=== PATIENT | female | born 1950 | race Caucasian/White ===

== ENCOUNTER 2024-03-13 17:20 | Emergency (ER) | payer MEDICARE, OTHER, SELFPAY ==
[2024-03-13 17:23] VITALS: BP 150/98
[2024-03-13 18:07] LABS: % Basophils 0.4 % (0-2); % Lymphocytes 42.9 % (20.5-51.1); % Monocytes 8.2 % (1.7-9.3); % Neutrophils 48.5 % (42.2-75.2); Absolute Monocytes 0.2 10^3/uL (0.1-0.6); Absolute Neutrophils 1.1 10^3/uL (1.4-6.5); Hematocrit 39.2 % (37.0-47.0); Hemoglobin 13.3 g/dL (12.0-16.0); Mean Corp Hgb Conc. 33.9 g/dL (33.0-37.0); Mean Corpuscular Volume 88.5 fL (81.0-99.0); Mean Platelet Volume 10.1 fL (7.4-10.4); Nucleated Red Blood Cells % 0 %; Platelet Count 168 10^3/uL (130-400); Red Blood Cell Count 4.43 10^6/uL (4.20-5.40); Red Cell Dist. Width 12.3 % (11.5-14.5); White Blood Cell Count 2.3 10^3/uL (4.8-10.8)
[2024-03-13 18:15] LABS: ALT (SGPT) 27 U/L (0-35); AST (SGOT) 34 U/L (14-36); Albumin 4.4 g/dl (3.5-5.0); Alkaline Phosphatase 76 U/L (38-126); Blood Urea Nitrogen 13 mg/dl (7-17); Calcium 9.3 mg/dl (8.4-10.2); Carbon Dioxide 26 mmol/L (22-30); Chloride 94 mmol/L (98-107); Glucose 114 mg/dl (70-99); Potassium 4.3 mmol/L (3.5-5.1); Sodium 128 mmol/L (135-145); Total Bilirubin 0.1 mg/dl (0.2-1.3); Total Protein 6.7 g/dl (6.3-8.2); eGFR > 60.00
[2024-03-13 18:18] LABS: Troponin I < 0.012 ng/ml
[2024-03-13 18:53] VITALS: BP 158/75
[2024-03-13 18:55] VITALS: BMI 22.3
[2024-03-13 18:58] VITALS: BP 158/75
[2024-03-13 19:00] VITALS: BP 155/43
--- NOTE | 2024-03-13 19:33 | ED.GENMED ---
History of Present Illness
General
Chief Complaint: Chest Pain
Source: patient
Exam Limitations: none
Time Seen by Provider: 03/13/24 19:04
Nursing documentation reviewed up to this point in time: agreed with
History of Present Illness
History of Present Illness:
73-year-old female with past medical history of A-fib on Eliquis who presents to the ER for evaluation of palpitations. Patient reports that she has been sick for about 5 or 6 days with cough and congestion. She says that a few days ago she
started to notice that she was having some occasional palpitations. Last night palpitations were worse and she said her heart rate was elevated but she was able to get to sleep. This morning palpitations and tachycardia increased. She did check
on her Apple Watch and noted that she was in sinus rhythm but appeared to be having extra beats; she decided to come to the ER for assessment. I did review the strips from her Apple Watch and indeed it appears to show sinus tachycardia with
occasional PACs. Denies palpitations at present. She says she has not had any chest pain, shortness of breath. Denies any nausea, vomiting, abdominal pain; has had some loose stools. She reports that her mouth feels dry denies any other
complaints on review of systems. She does note that she was started on Augmentin 2 days ago but skipped last night's dose with concern that palpitations could be a side effect.
Review of Systems
Review of Systems
All Other Systems: ROS reviewed and negative except as documented in HPI and ROS
Constitutional: Reports fatigue; Denies fever
EENT: Reports other (Congestion); Denies sore throat
Respiratory: Reports cough; Denies trouble breathing
Cardiac: Reports palpitations; Denies chest pain or syncope
ABD/GI: Reports diarrhea; Denies abdominal pain, nausea or vomiting
Neurological: Denies dizzy or headache
Phy Exam
Physical Exam
Physical Exam:
General: Awake, alert, oriented x3; no acute distress
Head: Normocephalic, atraumatic
Eyes: Conjunctiva normal, EOMI
Throat: Airway intact, handling secretions, somewhat dry mucous membranes
Neck: Trachea midline, supple without meningismus
Lungs: Clear to auscultation bilaterally, no wheezing, rales, rhonchi; occasional cough
Heart: Regular rate and rhythm, no murmurs, gallops, or rubs with no ectopy
Abd: Soft, non distended, nontender
Neuro: No gross deficits
Extremities: No edema in extremities, warm and well-perfused
Scores
Heart Failure Risk
Heart Failure Risk Score: Not Applicable
Heart Score for Chest Pain Patients
STEMI patient?: Not applicable
Withdrawal Assessment of Alcohol
Withdrawal Assessment Completed?: Not applicable
Course
Orders/Labs/Results
Orders:
Orders
03/13/24 17:21
Electrocardiogram (*1) Urgent
Reason for Study: Chest Pain
EKG- Treatment ONCE
03/13/24 17:23
CXR2 [CR Chest - 2 Views ] Urgent
Comment:
Reason For Exam: palpitations
03/13/24 17:47
Complete Blood Count/With Diff Urgent
Comprehensive Metabolic Panel Urgent
Magnesium Urgent
Comment: ADD ON
Troponin I Urgent
03/13/24 19:32
Add On- LAB Urgent
Tests Added?: magnesium level
0.9% Sodium Chloride 1000 ml [Nss] 1,000 ml IV BOLUS
Ipratropium/Albuterol Sulfate [Duoneb] 3 ml INH R NOW ONE
03/13/24 20:08
COVID-19 Antigen Urgent
Source: Nasal Swab
Influenza A+B Rapid Molecular Urgent
LORI Source: Nasal Swab
Specimen Description:
Abnormal Lab Results
03/13/24
17:47
WBC 2.3 L* 10^3/uL
(4.8-10.8)
Absolute Neuts (auto) 1.1 L 10^3/uL
(1.4-6.5)
Absolute Lymphs (auto) 1.0 L 10^3/uL
(1.2-3.4)
Sodium 128 L mmol/L
(135-145)
Chloride 94 L mmol/L
(98-107)
Creatinine 0.5 L mg/dL
(0.6-1.0)
Glucose 114 H mg/dl
(70-99)
Total Bilirubin 0.1 L mg/dl
(0.2-1.3)
03/13/24 17:47
03/13/24 17:47
Vital Signs
Initial and Last Documented VS:
Initial Vital Signs
Temp Pulse Resp BP Pulse Ox
37.0 C 83 16 150/98 99
03/13/24 17:23 03/13/24 17:23 03/13/24 17:23 03/13/24 17:23 03/13/24 17:23
Last Documented Vital Signs
Temp Pulse Resp BP Pulse Ox
36.9 C 64 13 157/70 99
03/13/24 18:58 03/13/24 20:00 03/13/24 20:00 03/13/24 20:00 03/13/24 20:00
MDM/Problems Addressed
Differential Diagnosis Includes:
Palpitations: PACs, paroxysmal atrial fibrillation, PVCs, anxiety
Cough/congestion: URI�flu/COVID, pneumonia considered less likely
MDM/Problems Addressed:
73-year-old female presents for evaluation of palpitations in the setting of recent URI symptoms. Hypertensive otherwise normal vitals. Physical exam as above. I did review strips from her Apple Watch that shows sinus tachycardia with PACs during
the time with which patient is reporting symptoms. EKG here shows sinus rhythm no ectopy. She had labs sent in triage including a CBC which shows leukopenia possibly in the setting of viral illness; CMP shows mild hyponatremia with acceptable
glucose no other clinically significant abnormalities. Denies chest pain but she did have a troponin sent in triage which was undetectable. She has a chest x-ray which shows no pneumonia, question of emphysema on chest x-ray--no reported history.
Will add swabs for COVID and flu. Plan to provide some fluids as patient appears to be mildly dehydrated which likely contributes to tachycardia. Will treat with a DuoNeb. Will monitor and reassess after the above. Likely stable for discharge
with supportive care and PCP follow-up for repeat labs.
Patient positive for influenza here. COVID-negative. Feeling better after fluids and DuoNeb. Outside window for Tamiflu, with question of emphysema on x-ray not unreasonable to trial Medrol Dosepak. Follow-up with PCP as an outpatient. Patient
feels comfortable with this plan. All questions answered.
*Radiology
Radiology exam reviewed: preliminary read by ED provider
*Pulse Oximetry
Patient hypoxic: no
*EKG
Interpreted by ED Provider?: Yes
Heart Rate: 75
Rate: normal
Rhythm: sinus
Corn: normal axis
Interval: normal interval
QRS Pattern: low voltage and right bundle branch block
Ischemia: no ischemia
*Critical Care Note
Total Time (30-74mins, 75-104mins- exclusive of procedures): Not Applicable
Data Reviewed
Source: patient and family (Son)
ED Attending Note
-
Portions of this chart may have been created with voice recognition software.� Occasional wrong word or��sound alike� substitutions may have occurred due to the inherent limitations of voice recognition software.
Discharge Plan
Departure
Patient Disposition: Home (Routine Discharge)
Date of Disposition: 03/13/24
Time of Disposition: 20:50
Patient with high blood pressure during this ER visit?: Yes
Discharge Problem:
Influenza A, Leukopenia, Dehydration, Heart palpitations
Instructions: Flu, Child ED, Palpitations ED, Dehydration in adults - ED discharge instructions
Prescriptions:
New
methylprednisolone [Medrol (Lionel)] 4 mg tablets,dose pack
See Rx Instructions .ROUTE .COMPLEX Qty: 21 0RF
Rx Instructions:
for 6 days
No Action
Eliquis 5 mg Tablet
5 mg PO BID
acetaminophen [Tylenol Extra Strength] 500 mg Tablet
1,000 mg PO Q6HPRN PRN (Reason: mild pain)
metoprolol succinate 25 mg Tablet Extended Release 24 Hr
12.5 mg PO DAILY
cholecalciferol (vitamin D3) [Vitamin D3] 50 mcg (2,000 unit) Tablet
50 mcg PO DAILY
estradiol [Vagifem] 10 mcg Tablet
10 mcg VAGINAL MOFR
magnesium oxide 400 mg magnesium Tablet
400 mg PO DAILY
Referrals:
Natasha Ashton MD [Family Provider] - Call in 1-3 days for appt
Activity Restrictions/Additional Instructions:
You should drink plenty of fluids and get plenty of rest over the next few days while you are recovering from the flu. You should follow-up with your primary doctor next week to have repeat blood work.
Thank you for visiting the Emergency Department at [facility].
1. Please schedule a follow up appointment as directed. Call first thing tomorrow morning to make an appointment.
2. If indicated, please take your medications as instructed and indicated on discharge paperwork.
3. If any of your symptoms do not improve, or persist, or become more severe within 6-12 hours, please return to the emergency department for further care.
4. Please return to the emergency department if you develop a headache, neck pain/stiffness, fever greater than 100.4F, chest pain, shortness of breath, persistent nausea, vomiting, slurred speech, difficulty walking, numbness/tingling, weakness,
signs of infection or any other symptoms that are worrisome to you.
Please call [phone] if you have any questions.
Interventions
Interventions:
*Risk Screen - Suicide Last Done: 03/13/24 17:23
*General Assessment Last Done: 03/13/24 18:56
*Neglect/Abuse Screening Last Done: 03/13/24 17:23
ED- Fall Risk Assessment Last Done: 03/13/24 19:14
*ED COVID-19 Vaccine History Last Done: 03/13/24 18:56
ED- Cardiac Assessment Last Done: 03/13/24 19:14
Discharge Date and Time
Print Language: RUSSIAN
[2024-03-13] MEDS: NSS 1000 IV (19:41)
[2024-03-13 20:00] VITALS: BP 157/70
[2024-03-13 20:05] LABS: Magnesium 1.9 mg/dl (1.6-2.3)
[2024-03-13 20:24] LABS: COVID-19 Antigen Negative (Negative)
[2024-03-13 21:00] VITALS: BP 178/86
== END 2024-03-13 21:23 | disposition home or self-care (01) ==
LOC: EMR 17:20
PROVIDERS: Emergency Medicine; EMERGENCY PHYSICIAN Emergency Medicine; FAMILY PHYSICIAN Family Medicine
DX: J10.1 Influenza due to other identified influenza virus with other respiratory manifestations (principal); D72.819 Decreased white blood cell count, unspecified; E86.0 Dehydration; R00.2 Palpitations; R07.89 Other chest pain; I48.91 Unspecified atrial fibrillation; I10 Essential (primary) hypertension; E87.1 Hypo-osmolality and hyponatremia; Z79.01 Long term (current) use of anticoagulants
CPT/HCPCS: 99283; 96360; 71046; 80053; 83735; 84484; 85025; 87502; 87811; 93005